=== PATIENT | female | born 1985 | race Caucasian/White ===

== ENCOUNTER 2016-08-08 08:37 | Emergency (ER) | payer SELFPAY ==
[2016-08-08 08:54] VITALS: TEMP 97.8; BMI 41.6
[2016-08-08] MEDS ORDERED: ONDANSETRON HCL 4 MG/2 ML VIAL IV ONE (08:58)
[2016-08-08] MEDS ORDERED: MORPHINE 4 MG/ML INJECTION IV ONE ×2 (08:58→09:54)
[2016-08-08] MEDS ORDERED: NS 1,000 ML IV ONE (08:58)
--- NOTE | 2016-08-08 09:06 | EDPRACDOC ---
- General Information Chief Complaint: Female Urogenital Problems Stated Complaint: ABD/BACK PAIN, VAGINAL BLEEDING Time Seen by Provider: 08/08/16 08:51 Information Source: Patient Mode Of Arrival: Car Home Medications: Home Medications Ketorolac Tromethamine [Toradol] 10 mg PO Q6H PRN #20 tab 08/08/16 Ondansetron [Zofran Odt] 4 mg PO Q6H PRN #10 tab.rapdis 08/08/16 Oxycodone HCl [Roxicodone] 5 mg PO Q6H #20 tablet 08/08/16 Phenazopyridine HCl [Pyridium] 200 mg PO TID #6 tablet 08/08/16 Sulfamethoxazole/Trimethoprim [Bactrim Ds Tablet] 1 tab PO BID #14 tab 08/08/16 Tamsulosin HCl [Flomax] 0.4 mg PO DAILY #14 cap 08/08/16 Allergies/Adverse Reactions: Allergies Allergy/AdvReac Type Severity Reaction Status Date / Time No Known Allergies Allergy Verified 08/08/16 08:54 - History of Present 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 NOW SHE HAS LEFT FLANK PAIN. SHE SAID THAT HAS HAD KIDNEY STONES BEFORE, BUT HAS NEVER HAD THE ABD PAIN WITH IT. 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 Denies: Asthma, COPD GI/ History: Reports: Kidney Stones Psychological History: Reports: Depression. Denies: Anxiety, Substance Use Disorder Systemic History: Denies: Cancer, Diabetes Surgical History: Reports: No Significant History. Denies: Hysterectomy - Family Medical History Reports: Cancer. Denies: Hypertension, Diabetes - Social Medical History Smoking Status: Heavy tobacco smoker (5 or more cigarettes/day or daily pipe/ cigar) Social History: Denies: Substance Use Disorder ETOH: None Substance Abuse: None Lives In: Home EDM Review of Systems - Review of Systems ROS Negative Except as Marked: Yes All systems reviewed and were negative except as marked Gastrointestinal: Pain Genitourinary: Dysuria, Flank Pain - Physical Exam Constitutional: Alert (Awake), No apparent distress Oriented to: Time, Person, Place Last recorded Vital Signs: Last Vital Signs Temp 97.8 F 08/08/16 08:45 Pulse 90 08/08/16 08:45 Resp 20 08/08/16 08:45 BP 193/95 H 08/08/16 08:45 Pulse Ox 96 08/08/16 08:45 Oxygen Pulse Oxygen Saturation 96 O2 Device Oxygen Flow Rate Fraction of Inspired Oxygen ( FIO2) - HEENT Head: Normal ( normocephalic) Eye Exam: Normal (PERRL, EOMI, Sclera white) Oropharynx: Normal (Pharynx:Moist without exudate,Gums-no swelling) ENT EAC: Normal TMJ: Normal Nose: No Symptoms Reported (septum midline) Neck: Normal (FROM, trachea at midline) - Respiratory/Cardiovascular Respiratory: Normal - CTA (BBS clear to auscultation without adventitious sounds ) Cardiovascular: Normal (RRR without murmur, gallop or rub) - GI Auscultation: Normal (NABS) Palpation: Normal (Soft,No rebound or guarding, non distended) Tenderness: Mild, Suprapubic Johnson's Sign: Negative - Musculoskeletal Back: Normal (Non-Tender) Extremities: Normal (Normal tone, Pulses 2+ No cyanosis or edema, FROM) - Integumentary Skin: Normal, Warm, Dry Lymphatics: Normal (no adenopathy) - Neurologic Memory Impaired: Normal Motor Function: Normal (Normal tone, Pulses 2+ No cyanosis or edema, FROM) Cranial Nerve: Normal (CN II-X11 intact sensation, strength 5/5) Cerebellar: Normal Mood Description: Normal Thought: Coherent Perception: Normal - Re-evaluation Re-evaluation 1 Re-evaluation Time: 12:58 (IMPROVED) - Results 08/08/16 09:15 08/08/16 09:15 Decision Time to Discharge: 12:58 - Departure Yes I personally saw and evaluated the patient. Disposition: Home Condition: Fair Final Diagnosis: UTI (urinary tract infection), Left ureteral calculus Instructions: Kidney Stones (ED), Urinary Tract Infection in Women (ED) Education/Counseling Given To: Patient Education/Counseling Given Regarding: Diagnosis, Treatment, Follow Up Referrals: None,No Provider [Primary Care Provider] - One Week Jg Woodruff MD [Staff Physician] - One Week Prescriptions: Ketorolac Tromethamine [Toradol] 10 mg PO Q6H PRN #20 tab PRN Reason: Pain Ondansetron [Zofran Odt] 4 mg PO Q6H PRN #10 tab.rapdis PRN Reason: Nausea/Vomiting Oxycodone HCl [Roxicodone] 5 mg PO Q6H #20 tablet Phenazopyridine HCl [Pyridium] 200 mg PO TID #6 tablet Sulfamethoxazole/Trimethoprim [Bactrim Ds Tablet] 1 tab PO BID #14 tab Tamsulosin HCl [Flomax] 0.4 mg PO DAILY #14 cap
[2016-08-08 09:11] LABS: RBC/URINE TNTC (0-5); WBC/URINE TNTC (0-5)
[2016-08-08 09:13] LABS: LEUKOCYTES/URINE NEG (NEGATIVE); NITRITE/URINE NEG (NEGATIVE); URINE OCCULT BLOOD 3+ (NEG/TRACE)
[2016-08-08 09:31] LABS: AUTOMATED BASOPHIL 0.5 % (0-2); AUTOMATED EOSINOPHIL 0.7 % (0-5); AUTOMATED LYMPH 18.2 % (17-44); AUTOMATED MONOCYTE 4.5 % (3-10); AUTOMATED NEUTROPHIL 76.1 % (45-76); MPV 8.2 fL (7.4-10.4)
[2016-08-08 09:44] LABS: BLOOD UREA NITROGEN 12 MG/DL (7-17); CALCIUM 9.2 MG/DL (8.4-10.2); CALCULATED OSMOLALITY 278 MOs/Kg (270-290); CHLORIDE 107 mEq/L (98-107); GLUCOSE 114 MG/DL (70-99); SODIUM LEVEL 144 mEq/L (137-146)
[2016-08-08] MEDS ORDERED: HYDROmorphone 1 MG INJECTION IV ONE (10:45)
[2016-08-08] MEDS ORDERED: CEFTRIAXONE 1 GM in D5W 100 ML IV ONE (10:55)
[2016-08-08] MEDS ORDERED: HYDROmorphone 1 MG INJECTION ONE (10:56)
[2016-08-08] MEDS ORDERED: CEFTRIAXONE 1 GM VIAL ONE (11:10)
[2016-08-08] MEDS ORDERED: KETOROLAC TROMETH 30 MG/ML VIAL IV ONE (12:41)
[2016-08-08] MEDS ORDERED: KETOROLAC TROMETH 30 MG/ML VIAL ONE (12:52)
[2016-08-08] MEDS ORDERED: PHENAZOPYRIDINE 100 MG TAB PO ONE ×2 (13:02→13:15)
[2016-08-08 13:28] VITALS: BP 168/75; PULSE 82
--- NOTE | 2016-08-09 07:36 | DIRPT ---
CLINICAL DATA: Left flank pain and hematuria EXAM: CT ABDOMEN AND PELVIS WITHOUT INTRAVENOUS CONTRAST TECHNIQUE: Multidetector CT images were obtained through the abdomen and pelvis without oral or intravenous contrast material administration. COMPARISON: October 22, 2014 FINDINGS: Lower chest: Lung bases are clear. Hepatobiliary: No focal liver lesions are identified. Gallbladder wall is not appreciably thickened. There is no biliary duct dilatation. Pancreas: No mass or inflammatory focus. Spleen: No splenic lesions are identified. Adrenal/Kidneys: No adrenal lesions are identified. There is a 1 mm nonobstructing calculus in the mid right kidney. There is a 1 mm calculus in the lower pole the right kidney, nonobstructing. There is no right-sided renal mass or hydronephrosis. There is no right-sided ureteral calculus. On the left, there is no mass. There is mild to moderate left-sided hydronephrosis. There is no intrarenal calculus on the left. There is a 3 mm calculus just proximal to the left ureterovesical junction. A second 3 mm calculus is present just proximal to this slightly more distal calculus. No other ureteral calculi are identified. Urinary bladder is midline with normal wall thickness. Stomach/Bowel: There is no bowel wall or mesenteric thickening. No bowel obstruction. No free air or portal venous air. Vascular/lLymphatic: There is no abdominal aortic aneurysm. No vascular lesions are appreciable on this noncontrast enhanced study. There is no adenopathy in the abdomen or pelvis. Reproductive: Uterus is anteverted. There is no pelvic mass or pelvic fluid collection. Other: Appendix appears normal. No abscess or ascites in the abdomen or pelvis. There is a small ventral hernia containing only fat. Musculoskeletal: There are no blastic or lytic bone lesions. No intramuscular or abdominal wall lesions. IMPRESSION: There are two, 3 mm distal left ureteral calculi with mild to moderate left-sided hydronephrosis. Small nonobstructing calculi right kidney. No hydronephrosis or ureteral calculus on the right. No bowel obstruction. No abscess. Appendix appears normal. Small ventral hernia containing only. Electronically Signed By: Vinnie Nielsen III, M.D. On: 08/08/2016 12:42
== END 2016-08-08 13:25 | disposition home or self-care (01) ==
LOC: ED 08:37
DX: N39.0 Urinary tract infection, site not specified (principal); N20.1 Calculus of ureter; F17.200 Nicotine dependence, unspecified, uncomplicated
CPT/HCPCS: 36415; 74176; 80053; 81001; 81025; 85025; 87086; 96361; 96365; 96375; 96376; 99284; J0696; J1170; J1885; J2270; J2405; J3490

== ENCOUNTER 2016-08-22 18:06 | Emergency (ER) | payer SELFPAY ==
[2016-08-22 18:08] VITALS: BMI 41.6
--- NOTE | 2016-08-22 19:09 | EDPRACDOC ---
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 Dx with pneumonia 1 month ago. Got better and is no getting worse. Denies cp, N/V/D, change in urine or BM. Med hx = kidney stones. Surgical hx = none. + smoker. Current Symptoms: Reports: Cough, Fever, Nasal Symptoms Shortness of Breath: Mild Cough: Reports: Non-productive Rhinorrhea: Reports: Clear Ear Symptoms: Reports: None Fever Severity/Quality: Reports: greater than 100.5 F Oral Intake: Normal Urinary Output: Normal Relevant History of: Other (smoker) Associated Signs & Symptoms:: Reports: Cough, Fever, Nasal Symptoms ED Past Medical History - History Reviewed Yes Nurses notes reviewed and agree except as marked - Patient Medical History Neurological History: Denies: Seizures, Migraine Cardiac History: Denies: Hypertension Respiratory History: Reports: Cough. Denies: Asthma, COPD GI/ History: Reports: Kidney Stones Psychological History: Reports: Depression. Denies: Anxiety, Substance Use Disorder Systemic History: Denies: Cancer, Diabetes Surgical History: Denies: Hysterectomy - Family Medical History Reports: Cancer. Denies: Hypertension, Diabetes - Social Medical History Smoking Status: Heavy tobacco smoker (5 or more cigarettes/day or daily pipe/ cigar) Social History: Denies: Substance Use Disorder EDM Review of Systems - Review of Systems ROS Negative Except as Marked: Yes All systems reviewed and were negative except as marked Nose: Congestion Respiratory: Cough, Shortness of Breath - Physical Exam Constitutional: Alert Oriented to: Time, Person, Place Last recorded Vital Signs: Last Vital Signs Temp 98.9 F 08/22/16 18:11 Pulse 104 08/22/16 18:51 Resp 22 08/22/16 18:51 BP 157/97 08/22/16 18:51 Pulse Ox 93 08/22/16 18:51 Oxygen Pulse Oxygen Saturation 93 O2 Device Room Air Oxygen Flow Rate Fraction of Inspired Oxygen ( 94 FIO2) - HEENT Head: Normal Eye Exam: negative: Conjunctival Injection, Scleral Icterus Oropharynx: negative: Drooling TMJ: Normal Nose: No Symptoms Reported Neck: Normal - Respiratory/Cardiovascular Respiratory: Wheezes (bilat, upper and lower) Cardiovascular: Normal - GI Tenderness: Non tender - Musculoskeletal Back: Normal Extremities: Normal - Neurologic Mood Description: Normal Thought: Coherent Perception: Normal - Re-evaluation Re-evaluation 1 Re-evaluation Time: 21:54 (neb helped. O2 sats 94%) - Results 08/22/16 19:20 08/22/16 19:20 - Diagnostic Imaging Chest Image interpreted by: Radiologist EXAM: CHEST 2 VIEW COMPARISON: 06/25/2016 FINDINGS: The lungs are clear wiithout focal pneumonia, edema, pneumothorax or pleural effusion. The cardiopericardial silhouette is within normal limits for size. The visualized bony structures of the thorax are intact. IMPRESSION: No active cardiopulmonary disease. Electronically Signed By: Gold Avila M.D. On: 08/22/2016 19:42 Decision Time to Discharge: 21:54 - Departure Disposition: Home Condition: Stable Final Diagnosis: Bronchitis Instructions: Acute Bronchitis (ED) Education/Counseling Given To: Patient Education/Counseling Given Regarding: Diagnosis, Treatment, Prognosis, Follow Up Referrals: None,No Provider [Primary Care Provider] - One Week Prescriptions: New Prednisone [Deltasone, Orasone] 40 mg PO DAILY 5 Days
[2016-08-22 19:35] LABS: AUTOMATED BASOPHIL 0.7 % (0-2); AUTOMATED EOSINOPHIL 0.1 % (0-5); AUTOMATED LYMPH 19.6 % (17-44); AUTOMATED MONOCYTE 7.7 % (3-10); AUTOMATED NEUTROPHIL 71.9 % (45-76); MPV 8.5 fL (7.4-10.4)
[2016-08-22 19:44] LABS: BLOOD UREA NITROGEN 12 MG/DL (7-17); CALCIUM 10.1 MG/DL (8.4-10.2); CALCULATED OSMOLALITY 272 MOs/Kg (270-290); CHLORIDE 107 mEq/L (98-107); GLUCOSE 89 mg/dL (70-99); SODIUM LEVEL 142 mEq/L (137-146); TOTAL PROTEIN 7.8 G/DL (6.3-8.2)
--- NOTE | 2016-08-22 19:45 | DIRPT ---
CLINICAL DATA: Shortness of breath with productive cough and fever. EXAM: CHEST 2 VIEW COMPARISON: 06/25/2016 FINDINGS: The lungs are clear wiithout focal pneumonia, edema, pneumothorax or pleural effusion. The cardiopericardial silhouette is within normal limits for size. The visualized bony structures of the thorax are intact. IMPRESSION: No active cardiopulmonary disease. Electronically Signed By: Gold Avila M.D. On: 08/22/2016 19:42
[2016-08-22] MEDS ORDERED: PREDNISONE 10 MG TAB PO ONE (21:00)
[2016-08-22] MEDS ORDERED: Albuterol/Ipratropium Neb 3 ML NEB NEB ONE (21:00)
[2016-08-22 22:06] VITALS: BP 138/79; PULSE 89; TEMP 98.1
== END 2016-08-22 22:05 | disposition home or self-care (01) ==
LOC: ED 18:06
DX: J40 Bronchitis, not specified as acute or chronic (principal)
CPT/HCPCS: 36415; 71020; 80053; 85025; 94640; 99283; J3490; J7620